=== PATIENT | male | born 1990 | race Caucasian/White ===

== ENCOUNTER 2019-04-13 16:53 | Emergency (ER) | payer MEDICAID ==
--- NOTE | 2019-04-13 17:10 | Emergency Department Record ---
History of Present Illness - General Stated Complaint: INFECTED SPIDER BITE R ARM Time Seen by Provider: 04/13/19 17:03 Source: Patient Mode of Arrival: Wheelchair Limitations: No limitations - History of Present Illness Initial Comments: 28 yo male with no previous history of medical problems presents to ED for evaluation of a 3-day history of a "spider bite" to the right dorsal aspect of the mid-forearm. Patient denies fevers, chills, nausea or vomiting symptoms. Patient does report similr symptoms 1 year ago to the lower extremity, not as severe. Patient's SO reports that that the patient awoke this morning and the distal aspect of the forearm extending to the hand was swollen prompting visit to the ED. Patient reports soaking the extremity in epson salts earlier today, reports that a nursing friend tried to incise and drain the wound yesterday as well at home. Complaint: Injury to:: Right Onset/Timin -: Days(s) Other Extremity Injury: Forearm: Right Other Injuries: None Improves With: None Worsens With: Movement of extremity Context: Other Associated Symptoms: Denies other symptoms - Related Data Allergies Allergy/AdvReac Type Severity Reaction Status Date / Time No Known Drug Allergies Allergy Verified 04/13/19 19:15 Review of Systems Constitutional: Denies: Chills, Fever, Malaise, Night sweats Eyes: Denies: Eye discharge, Eye pain ENT: Denies: Congestion, Ear pain, Epistaxis Respiratory: Denies: Cough, Dyspnea Cardiovascular: Denies: Chest pain, Dyspnea on exertion Endocrine: Denies: Fatigue, Heat or cold intolerance Gastrointestinal: Denies: Abdominal pain, Nausea, Vomiting Genitourinary: Denies: Incontinence, Retention Musculoskeletal: Denies: Arthralgia, Back pain Skin: Reports: Other (Raised lesion right forearm with surrounding swelling/pain). Denies: Bruising, Change in color Neurological: Denies: Abnormal gait, Confusion, Headache Psychiatric: Denies: Anxiety Hematological/Lymphatic: Denies: Anemia, Blood Clots Physical Exam - General General Appearance: Alert, Oriented x3, Cooperative, Moderate distress Limitations: No limitations - Head Head exam: Atraumatic, Normocephalic, Normal inspection Head exam detail: negative: Abrasion, Contusion, Mcclelland's sign, General tenderness, Hematoma, Laceration - Eye Eye exam: Normal appearance. negative: Conjunctival injection, Periorbital swelling, Periorbital tenderness, Scleral icterus - ENT Ear exam: negative: Auricular hematoma, Auricular trauma Nasal Exam: negative: Active bleeding, Discharge, Dried blood, Foreign body Mouth exam: negative: Drooling, Laceration, Muffled voice, Tongue elevation - Neck Neck exam: Normal inspection. negative: Meningismus, Tenderness - Respiratory Respiratory exam: Normal lung sounds bilaterally. negative: Respiratory distress, Rhonchi, Stridor, Wheezes - Cardiovascular Cardiovascular Exam: Regular rate, Normal rhythm, Normal heart sounds Peripheral Pulses: 3+: Radial (R) - GI/Abdominal GI/Abdominal exam: Soft. negative: Distended, Rebound, Rigid, Tenderness - Rectal Rectal exam: Deferred - exam: Deferred - Extremities Extremities exam: Tenderness, Other (2.5 cm lesion to the dorsal aspect of the mid-forearm, surrounding erythema, induration, and fluctuance with distal STS. No crepitatoin present on examination.). negative: Calf tenderness, Pedal edema - Back Back exam: Denies: CVA tenderness (R), CVA tenderness (L) - Neurological Neurological exam: Alert, Normal gait, Oriented X3 - Psychiatric Psychiatric exam: Normal affect, Normal mood - Skin Skin exam: Normal color. negative: Abrasion Type of lesion: negative: abrasion Course - Reevaluation(s) Reevaluation #1: 04/13/19 17:11 Patient was seen and examined. Will obtain laboratory studies and CT imaging to determine the extent of infection to the forearm Clindamycin ordered to infuse pending these results and surgical consultation. Reevaluation #2: 04/13/19 17:45 Laboratory studies were reviewed and appear grossly unremarkable for an acute process except for the following: WBC 18.7, 88% neutrophils CRP 8.07 Reevaluation #3: 04/13/19 18:57 CT Right Forearm: 1.7 cm abscess extending to the subcutaneous fat tissues posterior mid-forearm Associated extensive cellullitis. [facility] contacted for transfer and surgical consultation. Reevaluation #4: 04/13/19 19:04 Case was discussed with Dr. Marquez, will accept transfer by private car to [facility] for surgical consultation. Patient verbalizes understanding of all instructions, has declined transfer by EMS, and his significant other will be transferring the patient by car to [facility] for evaluation. Patient appears stable for transfer at this time. Reevaluation #5: 04/13/19 19:26 Following IV removal and verbal understanding of the plan for transfer to the hospital of the patient's choosing as discussed on three separate interactions, patient now has decided that he may "delay" his arrival to [facility]. I explained to the patient at length the risk of delaying his arrival to the receiving hospital. As a result, patient will be discharged home AMA with understanding that he should go directly to the receiving hospital without delay. Risks of , permanent impairment, or worsening of his current condition (including loss of his right arm) were discussed as well as the benefit of immediate transfer for surgical consultation for his presenting symptoms. Patient verbalizes understanding of all risks and benefits and desires to leave AMA despite these risks. Based on my examination, the patient is alert, oriented, and answers all questions appropriately. Patient appears to have the capacity to make rational decisions based on my examination. Patients family was present for the duration of our discussion as well. Nursing staff was present for my discussion with the patient as well. Patient was encouraged to return to the ED immediately if they change their mind about treatment and want to be transferred by EMS for surgical evaluation. Medical Decision Making - Lab Data Result diagrams: 04/13/19 17:15 04/13/19 17:15 Disposition Disposition: Transfer Clinical Impression: Abscess of upper extremity Disposition: Against Medical Advice Transfer To: [facility] Reason For Transfer: Surgical consultation Accepting Physician: Alma Time Discussed w/Accepting Physician: 19:04 Condition: (2) Stable Forms: Patient Portal Access Time of Disposition: 19:04 Quality - Quality Measures Quality Measures: N/A - Blood Pressure Screening Does Patient Have Any of the Following: No Blood Pressure Classification: Normal BP Reading Systolic Measurement: 118 Diastolic Measurement: 77 Screening for High Blood Pressure: < Normal BP, F/U Not Required > [G8783]
[2019-04-13 17:22] LABS: HEMATOCRIT 43.7 % (42.0-52.0); HEMOGLOBIN 14.5 gm/dl (14.0-18.0); MEAN CORPUSCULAR HEMOGLOBIN 30.5 pg (27-33); MEAN CORPUSCULAR HGB CONC 33.2 g/dl (32-36); MEAN PLATELET VOLUME 9.4 fl (7.4-10.4); PLATELET COUNT 325 K/uL (130-400); RED BLOOD COUNT 4.75 M/uL (4.40-5.70); RED CELL DISTRIBUTION WIDTH 12.8 % (11.5-14.5); WHITE BLOOD COUNT W/O DIFF 18.7 K/uL (4.2-12.2)
[2019-04-13] MEDS: KETOROLAC 30 MG/ML VIAL IVP ONE (17:23)
[2019-04-13] MEDS: CLINDAMYCIN 600MG/50ML PREMIX 600 MG/50 ML BAG IVPB ONE (17:24)
[2019-04-13] MEDS: 0.9 % SODIUM CHLORIDE 1000ML 1,000 ML IV SCH (17:31)
[2019-04-13 17:33] LABS: BLOOD UREA NITROGEN 16 mg/dL (6-20); EST GLOMERULAR FILTRATION RATE > 60 mL/min
[2019-04-13 17:34] LABS: TOTAL PROTEIN 6.4 g/dL (6.6-8.7)
[2019-04-13 17:36] LABS: GLUCOSE,RANDOM 145 mg/dL (74-109)
[2019-04-13 17:38] LABS: ALB/GLOB RATIO 1.6 (1.1-1.8); ALBUMIN 3.9 g/dL (4.0-5.0); ALT/SGPT 12 U/L (<41); AST/SGOT 14 U/L (10.0-50.0)
[2019-04-13 17:39] LABS: ALKALINE PHOSPHATASE 77 U/L (40-129); C-REACTIVE PROTEIN 8.09 mg/dL (<0.5)
[2019-04-13 17:59] LABS: ERYTHROCYTE SEDIMENTATION RATE 11 mm/hr (0-15)
--- NOTE | 2019-04-13 18:55 | CT SCAN REPORT ---
EXAMINATION: CT Right Upper Extremity with IV Contrast EXAM DATE: 04/13/2019 6:28 PM TECHNIQUE: Standard protocol CT imaging of the Right forearm was performed with intravenous contrast. Sagittal and coronal images were reconstructed. IV Contrast: The amount and type of contrast are rec orded in the medical record. INDICATION: abscess. Bite on forearm. COMPARISON: None ENCOUNTER: Not applicable FINDINGS: No fracture is demonstrated. No dislocation. Small cyst is noted within the lunate. There is diffuse subcutaneous edema. Along the posterior forearm approximately 8 cm posterior to the wrist, peripherally enhancing fluid collection in the subcutaneous fat measures 1.7 x 1.6 x 1.8 cm (3 04:29). No soft tissue gas. No foreign body identified. The musculature, tendons, and ligaments demonstrate unremarkable CT appearance. No joint effusion. IMPRESSION: 1. A 1.7 cm abscess in the subcutaneous fat of the posterior mid forearm. Associated extensive cellul itis. Dictated by: LIAM HARRELL MD on 04/13/2019 6:49 PM. .
== END 2019-04-13 19:36 | disposition left against medical advice (07) ==
LOC: ER 16:53
DX: L02.413 Cutaneous abscess of right upper limb (principal); F17.210 Nicotine dependence, cigarettes, uncomplicated
CPT/HCPCS: 80053; 85027; 85651; 86140; 96365; 96375; 99285; J1885; J7030